=== PATIENT | female | born 1995 | race Caucasian/White ===

== ENCOUNTER 2018-01-13 19:00 | Emergency (ER) | payer OTHER ==
[2018-01-13] MEDS ORDERED: OXYMETAZOLINE 30 ML NASAL SPRAY EACHNARE ONE (19:06)
[2018-01-13] MEDS ORDERED: TRANEXAMIC ACID 1,000 MG/10 ML VIAL TP ONE (19:06)
[2018-01-13] MEDS ORDERED: COCAINE HCL 4% 4 ML BTL TP ONE (19:07)
--- NOTE | 2018-01-13 19:08 | EDPHY ---
H & P Stated Complaint: nosebleed Time Seen by Provider: 01/13/18 19:03 HPI/ROS: CHIEF COMPLAINT: Epistaxis HISTORY OF PRESENT ILLNESS: The patient is a 22-year-old female who comes to the emergency department complaining of epistaxis in her right naris. It began about 20 min ago. It is now stopping. She was concerned because 3 weeks ago she had septoplasty for chronic sinus congestion and infections. She had been recovering well until today. No fevers. No trauma. REVIEW OF SYSTEMS: Constitutional: denies: chills, fever, recent illness, recent injury EENTM: See HPI denies: blurred vision, double vision Respiratory: denies: cough, shortness of breath Cardiac: denies: chest pain, irregular heart rate, lightheadedness, palpitations Gastrointestinal/Abdominal: denies: abdominal pain, diarrhea, nausea, vomiting, blood streaked stools Genitourinary: denies: dysuria, frequency, hematuria, pain Musculoskeletal: denies: joint pain, muscle pain Skin: denies: lesions, rash, jaundice, bruising Neurological: denies: headache, numbness, paresthesia, tingling, dizziness, weakness Hematologic/Lymphatic: denies: blood clots, easy bleeding, easy bruising Immunologic/allergic: denies: HIV/AIDS, transplant EXAM: GENERAL: Well-appearing, well-nourished and in no acute distress. HEAD: Atraumatic, normocephalic. EYES: Pupils equal round and reactive to light, extraocular movements intact, sclera anicteric, conjunctiva are normal. ENT: Right anterior nasal bleeding. TMs normal, nares patent, oropharynx clear without exudates. Moist mucous membranes. NECK: Normal range of motion, supple without lymphadenopathy or JVD. LUNGS: Breath sounds clear to auscultation bilaterally and equal. No wheezes rales or rhonchi. HEART: Regular rate and rhythm without murmurs, rubs or gallops. ABDOMEN: Soft, nontender, normoactive bowel sounds. No guarding, no rebound. No masses appreciated. BACK: No CVA tenderness, no spinal tenderness, step-offs or deformities EXTREMITIES: Normal range of motion, no pitting or edema. No clubbing or cyanosis. NEUROLOGICAL: Cranial nerves II through XII grossly intact. Normal speech, normal gait. 5/5 strength, normal movement in all extremities, normal sensation PSYCH: Normal mood, normal affect. SKIN: Warm, dry, normal turgor, no visible rashes or lesions. Source: Patient, EMS Exam Limitations: No limitations - Personal History LMP (Females 10-55): 22-28 Days Ago Current Tetanus Diphtheria and Acellular Pertussis (TDAP): Yes - Medical/Surgical History Hx Asthma: No Hx Chronic Respiratory Disease: No Hx Diabetes: No Hx Cardiac Disease: No Hx Renal Disease: No Hx Cirrhosis: No Hx Alcoholism: No Hx HIV/AIDS: No Hx Splenectomy or Spleen Trauma: No Other PMH: Sinus surgery December 2017 - Family History Significant Family History: No pertinent family hx - Social History Smoking Status: Never smoked Alcohol Use: Sober Drug Use: None Constitutional: Initial Vital Signs Temperature (C) 36.6 C 01/13/18 19:02 Heart Rate 79 01/13/18 19:02 Respiratory Rate 16 01/13/18 19:02 Blood Pressure 126/74 H 01/13/18 19:02 O2 Sat (%) 98 01/13/18 19:02 O2 Delivery Mode Room Air Allergies/Adverse Reactions: cefuroxime [From Ceftin] Allergy (Verified 01/13/18 19:06) Home Medications: Medication Instructions Recorded NK [No Known Home Meds] 01/13/18 Medical Decision Making Procedures: The patient had significant improvement in her symptoms after clot removal pipe blowing and Afrin instillation and clamping. I then anesthetized her right nares with cocaine and placed a cotton ball soaked in TXA. ED Course/Re-evaluation: 825 the patient's bleeding stopped. Give her a road test. We discussed removal of the cotton ball in 24 hr. We discussed steps to take it begins bleeding again. Differential Diagnosis: Partial list of the Differential diagnosis considered include but were not limited to; anterior epistaxis, posterior epistaxis, trauma and although unlikely based on the history and physical exam, I also considered infection. I discussed these differential diagnoses and the plan with the patient as well as the usual and expected course. The patient understands that the diagnosis is provisional and that in medicine we are not always correct and that further workup is often warranted. Usual and customary warnings were given. All of the patient's questions were answered. The patient was instructed to return to the emergency department should the symptoms at all worsen or return, otherwise to followup with the physician as we discussed. - Data Points Medications Given: Discontinued Medications Cocaine HCl (Cocaine Hcl) 1 justine TP EDNOW ONE Stop: 01/13/18 19:08 Last Admin: 01/13/18 20:25 Dose: 1 justine Oxymetazoline HCl (Afrin Nasal [place]) 2 sprays EACHNARE EDNOW ONE Stop: 01/13/18 19:07 Last Admin: 01/13/18 19:09 Dose: 2 sprays Tranexamic Acid (Cyklokapron) 500 mg TP EDNOW ONE Stop: 01/13/18 19:07 Last Admin: 01/13/18 20:26 Dose: 500 mg Departure - Departure Disposition: Home, Routine, Self-Care Clinical Impression: Acute anterior epistaxis Condition: Fair Instructions: Nosebleed (ED) Referrals: Patient,NotPresent [Unknown] - As per Instructions
[2018-01-13 20:26] VITALS: BP 109/65
== END 2018-01-13 20:44 | disposition home or self-care (01) ==
LOC: EDUNIT#
DX: R04.0 Epistaxis (principal)

== ENCOUNTER 2018-01-15 16:41 | Emergency (ER) | payer OTHER ==
--- NOTE | 2018-01-15 17:01 | EDPHY ---
H & P Stated Complaint: Recurrent epistaxis post sinus surgery 12/24 in [place];here 2 days ago Time Seen by Provider: 01/15/18 17:01 - Personal History LMP (Females 10-55): 22-28 Days Ago Current Tetanus Diphtheria and Acellular Pertussis (TDAP): Yes - Medical/Surgical History Hx Asthma: No Hx Chronic Respiratory Disease: No Hx Diabetes: No Hx Cardiac Disease: No Hx Renal Disease: No Hx Cirrhosis: No Hx Alcoholism: No Hx HIV/AIDS: No Hx Splenectomy or Spleen Trauma: No Other PMH: Sinus surgery December 2017 - Social History Smoking Status: Never smoked Constitutional: Initial Vital Signs Heart Rate 88 01/15/18 16:43 Respiratory Rate 18 01/15/18 16:43 Blood Pressure 121/84 H 01/15/18 16:43 O2 Sat (%) 98 01/15/18 16:43 O2 Delivery Mode Room Air Allergies/Adverse Reactions: cefuroxime [From Ceftin] Allergy (Severe, Verified 01/15/18 16:45) Anaphylaxis Home Medications: Medication Instructions Recorded NK [No Known Home Meds] 01/13/18 Medical Decision Making ED Course/Re-evaluation: CHIEF COMPLAINT: Recurrent nosebleed HISTORY OF PRESENT ILLNESS: The patient is a 22 y/o female with a history of a turbinate sinus surgery (07/01) complaining of recurrent nose bleeds. On 01/13/18, 2 days ago, she presented to this emergency department for similar symptoms. The nose bleed was able to be stopped with a cotton ball soaked in TXA. Afrin, nose plugs, and cotton balls have not stopped the nosebleed today. Denies headache, sore throat , chest pain, shortness of breath, abdominal pain, urinary or bowel complaints, fever. Followed by Dr. White, ENT, in [place] ([phone]). REVIEW OF SYSTEMS: A 10 point review of systems was performed and is negative with the exception of the elements mentioned in the history of present illness. PHYSICAL EXAM: HR, BP, O2 Sat, RR. Temp noted General Appearance: Pale, alert, well hydrated, appropriate, and non-toxic appearing. Head: Atraumatic without scalp tenderness or obvious injury Eyes: Pupils equal, round, reactive to light and accommodation, EOMI, no trauma , no injection. Ears: Clear bilaterally, no perforation, normal landmarks Nose: Bilateral epistaxis. Atraumatic, clear. Throat: There is no erythema or exudates, no lesions, normal tonsils, mucus membranes moist. Neck: Supple, nontender, no lymphadenopathy. Respiratory: No retractions, no distress, no wheezes, and no accessory muscle use. Lungs are clear to auscultation bilaterally. Cardiovascular: Regular rate and rhythm, no murmurs, rubs, or gallops. Bilateral carotid, radial, dorsalis pedis, and posterior tibial pulses intact. Good capillary refill all extremities. Gastrointestinal: Abdomen is soft, nontender, non-distended, no masses, no rebound, no guarding, no peritoneal signs. Musculoskeletal: Normal active ROM of all extremities, atraumatic. Neurological: Alert, appropriate, and interactive. The patient has normal DTRs and non-focal cranial nerves, motor, sensory, and cerebellar exam. Skin: No rashes, good turgor, no nodules on palpation. Past medical history: Denies Past surgical history: Sinus surgery (December 2017) Family history: Denies Social history: Mother at bedside, employed at [employer] DIAGNOSTICS/PROCEDURES/CRITICAL CARE TIME: Procedure: Epistaxis control. Indication: nosebleed not controlled by direct pressure. Risks, benefits, alternatives discussed with patient and consent obtained. The epistaxis was identified. The patient was treated with TXA soaked cotton balls. Following the procedure the patient was re-examined and the bleeding was better controlled. The patient tolerated the procedure well. The procedure was performed by myself, Dr. Seay. DIFFERENTIAL DIAGNOSIS: The differential diagnosis for the patient's epistaxis included but was not limited to epistaxis, post-sinus surgery complication. MEDICAL DECISION MAKING: The patient is a 22 y/o female with a history of a turbinate sinus surgery (07/01) presenting with recurrent nose bleeds. She is pale and has an active nosebleed in both nares. I will perform Epistaxis control. 1712: Afrin applied to both nares prior to Epistaxis control. 1728: Consulted with Dr. Jaime, suction dredge dumping supervisor ENT for Dr. White in [place], regarding this patient. He would like the patient to be transported to [facility] so he can operate on her. I-stat ordered. 1734: Reassessed patient and discussed transfer to [facility] in [place], which she is comfortable with. The bleeding has slowed considerably. 174: EMTALA signed. Patient will be sent via [facility] to [facility]. 174: Consulted with Dr. Valerio, ER physician at [facility], regarding this patient. He accepts admission of this patient to [facility]. 1748: Patient's H&H is 11.6 and 34; she is safe for transport. - Data Points Medications Given: Discontinued Medications Oxymetazoline HCl (Afrin Nasal [place]) 2 sprays EACHNARE EDNOW ONE Stop: 01/15/18 17:22 Last Admin: 01/15/18 17:27 Dose: 2 sprays Tranexamic Acid (Cyklokapron) 500 mg TP EDNOW ONE Stop: 01/15/18 17:22 Last Admin: 01/15/18 17:26 Dose: 500 mg Departure - Departure Disposition: Acute Care Hospital [facility] Clinical Impression: Epistaxis, S/P sinus surgery Condition: Fair Instructions: Nosebleed (ED) Additional Instructions: 1. Go to [facility]. 2. Keep packing in place until this time. 3. Return to emergency department for fever, recurrence of bleeding, packing dislodgment or other concerns. Referrals: Ana Lala MD [Medical Doctor] - As per Instructions Report Scribed for: Barry Seay Report Scribed by: Purvi Hernandez Date of Report: 01/15/18 Time of Report: 17:01
[2018-01-15] MEDS ORDERED: TRANEXAMIC ACID 1,000 MG/10 ML VIAL ONE (17:07)
[2018-01-15] MEDS ORDERED: OXYMETAZOLINE 30 ML NASAL SPRAY ONE (17:11)
[2018-01-15] MEDS ORDERED: OXYMETAZOLINE 30 ML NASAL SPRAY EACHNARE ONE (17:21)
[2018-01-15] MEDS ORDERED: TRANEXAMIC ACID 1,000 MG/10 ML VIAL TP ONE (17:21)
[2018-01-15 17:50] VITALS: BP 114/79
== END 2018-01-15 17:57 | disposition short-term general hospital (02) ==
PROC: 2Y41X5Z Packing of Nasal Region using Packing Material (ICD-10-PCS; principal; 2018-01-15)
DX: R04.0 Epistaxis (principal); Z98.890 Other specified postprocedural states
CPT/HCPCS: 82435-PO; 82565-PO; 82947-PO; 84132-PO; 84295-PO; 84520-PO; 85014-PO